=== PATIENT | female | born 1945 | race Caucasian/White ===

== ENCOUNTER 2020-03-19 08:04 | Emergency (ER) | payer MEDICARE ==
[~2020-03-19] VITALS: Ht 175.3 cm; Wt 109.0 kg
[2020-03-19] MEDS ORDERED: RIVAROXABAN 20 MG TABLET PO SCH (08:30)
[2020-03-19] MEDS ORDERED: DILTIAZEM 5 MG/ML, 5ML IVPush ONE (08:30)
[2020-03-19] MEDS ORDERED: SODIUM CHLORIDE 0.9% 1,000 ML IV ONE (08:30)
[2020-03-19] MEDS ORDERED: DILTIAZEM 5 MG/ML, 5ML ONE (08:32)
[2020-03-19] MEDS ORDERED: DILTIAZEM 125 MG in SODIUM CHLORIDE 0.9% 100 ML IV SCH (09:00)
[2020-03-19] MEDS ORDERED: PLEASE ENTER ALLERGIES MC SCH (09:00)
--- NOTE | 2020-03-19 09:19 | NUR ---
LATE ENTRY FOR ADMIT EVENTS, BIB EMS FROM HOME IN [place], DAUGHTER AT BEDSIDE. PT WITH LONG COURSE OF ILLNESS SINCE JAN 2020, FREQUENT UTI'S, DIARRHEA, JACKLYN IN STOOL AND URINE, PAIN, FAILURE TO THRIVE, NEW DIAGNOSIS OF PORT NECK AND OCCIPITAL MASS WITH BIOPSY (NO DIAGNOSIS YET) WAS AT [facility] D/C TO REHAB THEN TO HOME WHERE SHE HAS CONTINUE TO BE TOO WEAK TO GET OOB. STEFANI STEEL PA AT BEDSIDE, PT ASSESSMENT, POC DISCUSSED. EKG COMPLETED +A-FIB WITH HX OF. STRAIGHT CATH COMPLETED W/ DIFFICULTY 2/2 PT INABILITY TO TOLLERATE HAVING HER LEGS BENT, BUT URINE OBTAINED. WERNER WICK CATH PLACED. VSS. PT TRANSFERED ONTO HOSPITAL BED. PCXR COMPLETED. PIV EST AND LABS DRAWN. PT MED WITH 10MG DILTIAZEM NOTED FOR RAPID A-FIB. SBAR RPT TO PANCHO RICHTER.
[2020-03-19 09:28] LABS: BASOPHILS % (AUTO) 0 % (0-1); EOSINOPHILS % (AUTO) 0 % (1-7); LYMPHOCYTES % (AUTO) 9 % (22-44); MEAN CORPUSCULAR HEMOGLOBIN 31.4 pg (27.0-34.8); MEAN CORPUSCULAR HGB CONC 33.3 g/dL (32.4-35.8); MEAN PLATELET VOLUME 6.7 fL (7.4-10.4); MONOCYTES % (AUTO) 11 % (2-9); NEUTROPHILS % (AUTO) 80 % (42-75); PLATELET COUNT 336 x10^3/uL (130-400); RED BLOOD COUNT 4.51 x10^6/uL (3.82-5.3); RED CELL DISTRIBUTION WIDTH 16.2 % (9.6-15.2)
--- NOTE | 2020-03-19 09:29 | NUR ---
RECEIVED BEDSIDE REPORT AND CARE FROM CHRSI DELEON. PT REPOSITIONED FOR COMFORT. CARDIZEM ADMIN, HR 100-120 ON MONITOR. VITALS OTHERWISE STABLE. CARDIZEM DRIP REQUESTED FROM PHARMACY. ASSESSMENT COMPLETED, DAUGHTER AT BEDSIDE,
[2020-03-19 09:38] LABS: ALBUMIN 3.4 g/dL (3.4-5.0); ANION GAP 12 mmol/L (5-15); CALCIUM 13.1 mg/dL (8.5-10.1); CHLORIDE 99 mmol/L (98-107)
[2020-03-19 09:42] LABS: ALANINE AMINOTRANSFERASE 27 U/L (12-78); ALKALINE PHOSPHATASE 156 U/L (45-117); BILIRUBIN,TOTAL 1.8 mg/dL (0.2-1.0); CREATININE 1.25 mg/dL (0.55-1.02); TOTAL PROTEIN 7.7 g/dL (6.4-8.2)
[2020-03-19] MEDS: PLEASE ENTER HEIGHT AND WEIGHT MC SCH ×2 (09:47→14:06)
[2020-03-19] MEDS ORDERED: RIVAROXABAN 20 MG TABLET ONE (09:50)
[2020-03-19 09:56] LABS: MICROSCOPIC INDICATED
[2020-03-19 09:59] LABS: MD SCAN
--- NOTE | 2020-03-19 10:00 | NUR ---
KARI RN AT BEDSIDE TO ASSIST WITH PT CARE. TO PLACE 2ND PIV PER DR. MARINELLI. PHARMACY CALLED REGARDING CARDIZEM DRIP, CONTINUE AWAITING ARRIVAL. HR 100-115 ON MONITOR, VITALS OTHERWISE STABLE. PT REPOSITIONED TO RIGHT LATERAL WITH PILLOWS FOR SUPPORT. PUREWICK REMAINS IN PLACE. CALL LIGHT IN REACH. FALL PRECAUTIONS IN PLACE. SIDE RAILS UP. DAUGHTER REMAINS AT BEDSIDE.
--- NOTE | 2020-03-19 10:55 | NUR ---
BEDSIDE REPORT AND TRANSFER OF CARE TO MANUELA RN AT THIS TIME. VSS. ADMITTING PROVIDER AT BEDSIDE FOR EVALUATION. CARDIZEM DRIP INFUSING ON IV PUMP PER DR. MARINELLI. IVF INFUSING WELL PER ORDER ON IV PUMP. DENIES NEED TO USE RESTROOM. CALL LIGHTI N REACH. FALL PRECAUTIONS IN PLACE. PT RESTING COMFORTABLY.
--- NOTE | 2020-03-19 11:00 | NUR ---
Wilfrido puente in [facility] - 03/19/20 at 1131 by JOAQUIN BEDSIDE REPORT AND TRANSFER OF CARE TO MANUELA DELEON AT THIS TIME.
--- NOTE | 2020-03-19 11:07 | NUR ---
REPORT RECEIVED FROM PANCHO RICHTER. ASSUMING PRIMARY CARE OF PT. DAUGHTER AT BEDSIDE. PT LYING IN HOSPITAL BED. PT APPEARS TO BE COMFORATABLE. PANCHO RICHTER TRYING FOR SECOND LINE. VSS.
--- NOTE | 2020-03-19 11:42 | NUR ---
PANCHO PIERCE AT BEDSIDE ATTEMPTING TO GET PIV ACCESS VIA US.
[2020-03-19] MEDS ORDERED: hydrALAzine 20 MG/ML, 1ML IVPush PRN (12:00)
[2020-03-19] MEDS ORDERED: ONDANSETRON 2MG/ML, 2ML IVPush PRN (12:00)
[2020-03-19] MEDS ORDERED: OXYcodone/APAP 5/325MG TABLET PO PRN (12:00)
[2020-03-19] MEDS ORDERED: ONDANSETRON ODT 4 MG PO PRN (12:00)
[2020-03-19] MEDS ORDERED: morphine SULFATE 10 MG/ML, 1ML IVPush PRN (12:00)
[2020-03-19] MEDS ORDERED: ACETAMINOPHEN 325 MG TABLET PO PRN (12:00)
[2020-03-19] MEDS ORDERED: GLIP10TA24 PO (12:14)
[2020-03-19] MEDS ORDERED: TRAM50TA2 PO (12:14)
[2020-03-19] MEDS ORDERED: ATOR-2 PO (12:14)
[2020-03-19] MEDS ORDERED: INSU300I SQ-INSULIN (12:14)
[2020-03-19] MEDS ORDERED: RIVA20TA PO (12:14)
[2020-03-19] MEDS ORDERED: METO25TA35 PO (12:14)
[2020-03-19] MEDS ORDERED: LISI40TA PO (12:14)
[2020-03-19] MEDS ORDERED: CYCL5TAB PO (12:14)
--- NOTE | 2020-03-19 12:28 | NUR ---
CHICKEN BROTH AND APPLE SAUCE PROVIDED TO PT PER REQUEST. DAUGHTER AT BEDSIDE HELPING PT EAT.
--- NOTE | 2020-03-19 13:14 | NUR ---
BREAK RN: PT RESTING ON HOSPITAL BED W/ SIDE RAILS UPX2, CALL LIGHT IN REACH AND FAMILY AT BEDSIDE. RESP EVEN AND UNLABORED, ISMAEL.
--- NOTE | 2020-03-19 13:53 | NUR ---
RN INFORMED DR MARTINEZ THAT PT IS CURRENTLY RECEIVING A CARDIZEM DRIP FOR RATE CONTROL. RN STATED THAT PT IS UNABLE TO GO TO A MEDICAL FLOOR WITH THIS DRIP. RN ALSO STATED THAT PT TAKES METOPROLOL 50MG BID AT HOME. WOULD LIKE RN TO STOP CARDIZEM DRIP AND ADMINISTER METOPROLOL 50MG PO ONE NOW.
[2020-03-19] MEDS ORDERED: METOPROLOL TARTRATE 50 MG TAB PO ONE (14:00)
[2020-03-19] MEDS ORDERED: METOPROLOL TARTRATE 50 MG TAB ONE (14:00)
[2020-03-19 14:05] VITALS: BP 125/55
--- NOTE | 2020-03-19 14:23 | NUR ---
JOSE WALLACE STOPPED AY 1400 PER MD ORDERS.
[2020-03-19] MEDS ORDERED: RIVAROXABAN 20 MG TABLET PO ONE (16:30)
--- NOTE | 2020-03-19 17:41 | NUR ---
PT TO BE DISCHARGED VIA [facility] AROUND 1900. JUNIOR RENEE DOING DC PAPERWORK. FAMILY INFORMED OF PLAN.
--- NOTE | 2020-03-19 18:13 | NUR ---
RN WENT OVER DC INSTRUCTIONS WITH PT AND DAUGHTER. PT AND DAUGHTER VERBALIZED UNDERSTANDING. NO FURTHER QUESTIONS OR CONCERNS EXPRESSED. DAUGHTER AND RN HELPED PT GET DRESSED. ANNA DUE TO CHOKER HOOKER PT AROUND 1900.
--- NOTE | 2020-03-19 18:48 | NUR ---
REPORT TO PANCHO HUERTAS.
--- NOTE | 2020-03-19 18:51 | NUR ---
BEDSIDE REPORT RECEIVED FROM MANUELA DELEON
--- NOTE | 2020-03-19 19:07 | NUR ---
Patient and caregivers given discharge instructions and they have confirmed that they understand the instructions. Patient home via [facility].
[2020-03-19] MEDS ORDERED: LACTULOSE 10 GM/15 ML UDC PO SCH (21:00)
[2020-03-20] MEDS ORDERED: SENNA/DOCUSATE TABLET PO SCH (09:00)
== END 2020-03-19 19:09 ==
LOC: ED 09:51 → UNDOADMIN 10:00 → EDIP 10:00 → SUATTDRO 10:20 → ED 19:09
PROVIDERS: ATTEND Hospitalist
DX: I48.91 Unspecified atrial fibrillation (principal); C96.9 Malignant neoplasm of lymphoid, hematopoietic and related tissue, unspecified; I10 Essential (primary) hypertension; E11.9 Type 2 diabetes mellitus without complications; E78.5 Hyperlipidemia, unspecified; R00.0 Tachycardia, unspecified
CPT/HCPCS: 36415; 71045; 80053; 81001; 85025; 87086; 93005; 96365; 96366; 96376; 99285; J7030; 96361; 96375